=== PATIENT | female | born 1985 | race Two or more races ===

== ENCOUNTER 2020-07-15 | Emergency (ER) | payer OTHER ==
[~2020-07-15] VITALS: Ht 160 cm; Wt 103.6 kg
[2020-07-15] MEDS ORDERED: BENZ100C PO (01:10)
[2020-07-15] MEDS ORDERED: GUAI120L35 PO (01:10)
--- NOTE | 2020-07-15 01:11 | ED.ADGEN ---
Past Medical History Past Medical History: GERD, Migraines, Other Additional Past Medical Histor: "BACK PROBLEMS" Past Surgical History: No Surgical History Smoking Status: Former Smoker Alcohol Use: None General Adult EDM: Chief Complaint: CHEST PAIN HPI: HPI: Patient is a 34-year-old previously healthy female who presents to the emergency room complaining of substernal chest pain when she coughs. She states that she has had a cough for "a while" but it seems to have gotten worse over the last week. She states that since last night she has been having coughing fits that lead to vomiting and she feels like it is hard to catch her breath after these coughing fits. When she is not coughing she does not have any shortness of breath. She denies any fever, chills, sweats, URI symptoms, nausea, diarrhea, abdominal pain. Review of Systems: Review of Systems: Complete ROS is negative unless otherwise documented in HPI Allergies: Allergies: Allergies Coded Allergies Type Severity Reaction Last Updated Verified aspirin Allergy Unknown HIVES 07/15/20 Yes Physical Exam: PE: General: Awake, alert, NAD. Well Nourished, well hydrated. Cooperative HEENT: Atraumatic, EOMI, PERRL, airway patent, moist oral mucosa Neck: Supple, trachea midline Respiratory: CTA bilaterally, normal effort, no wheezing/crackles CV: RRR, no murmur, cap refill <2 GI: Soft, nondistended, nontender, no masses MSK: No obvious deformities Skin: Warm, dry, intact Neuro: A&O x3, speech NL, sensory and motor grossly intact, no focal deficits Psych: Normal affect, normal mood, not suicidal or homicidal Current Patient Data: Labs: Laboratory Tests Test 07/15/20 00:43 POC Urine HCG, Qualitative Hcg negative (Negative) Vital Signs: Vital Signs Date Time Temp Pulse Resp B/P (MAP) Pulse Ox O2 Delivery O2 Flow Rate FiO2 07/15/20 00:08 97.9 94 20 104/63 (77) 96 Room Air 97.9 EKG: EKG: [] Heart Score: Risk Factors: Risk Factors: DM, Current or recent (<one month) smoker, HTN, HLP, family history of CAD, obesity. Risk Scores: Score 0 - 3: 2.5% MACE over next 6 weeks - Discharge Home Score 4 - 6: 20.3% MACE over next 6 weeks - Admit for Clinical Observation Score 7 - 10: 72.7% MACE over next 6 weeks - Early Invasive Strategies Radiology/Procedures: Radiology/Procedures: [] Course & Med Decision Making: Course & Med Decision Making Pertinent Labs and Imaging studies reviewed. (See chart for details) Patient is a 34-year-old female who presents to the emergency room with chest pain when coughing. Pain is reproducible on exam. Patient likely has costochondritis. Chest x-ray is normal. Vitals are normal. Patient is overall well-appearing. EKG is normal. At this time pain is most consistent with musculoskeletal and patient does not need a cardiac work-up at this time. Patient's test results and vitals while in the ED were fully reviewed and discussed with the patient. Patient is stable and at this time does not need admission to the hospital. We have discussed strict return precautions and the importance of following up with their Primary Care Physician. Patient stated understanding and was given an opportunity to ask any questions. Patient is in agreement with plan. Karen Disclaimer: Karen Disclaimer: This electronic medical record was generated, in whole or in part, using a voice recognition dictation system. Departure Departure Impression: Primary Impression: Costal chondritis Additional Impression: Cough Disposition: 01 DC HOME SELF CARE/HOMELESS Condition: STABLE Patient Instructions: Costochondritis, Cough, Adult Scripts Guaifenesin/Codeine Phosphate (Codeine-Guaifen 10-100 mg/5 ml) 120 Ml Liquid 5 ML PO PRN Q6HRS PRN for cough and congestion MDD 20 Milliliter(s) for 6 Days, #60 ML 0 Refills Prov: RICKEY TRUJILLO MD 07/15/20 Benzonatate (TESSALON PERLE) 100 Mg Capsule 1 CAP PO TID for cough, #21 CAP Prov: RICKEY TRUJILLO MD 07/15/20 Problem Qualifiers RICKEY TRUJILLO MD Jul 15, 2020 01:11
[2020-07-15 01:29] VITALS: BP 127/58
--- NOTE | 2020-07-15 02:17 | RAD ---
AP portable chest radiograph 07/15/2020 Clinical History: Shortness of breath. An AP erect portable digital radiograph of the chest was obtained. The cardiac and mediastinal silhouettes are within normal limits in size and configuration. No pulmon karel infiltrate is seen. No pleural effusion or pneumothorax is noted. The osseous structures are nas sly intact. IMPRESSION: No acute abnormality is seen. Electronically signed by: Edmar Mejia MD (07/15/2020 2:15 AM) [id number]
--- NOTE | 2020-07-15 03:05 | EKG ---
[facility] [address] [place] [address] Test Date: 2020-07-15 Test Time: 00:10:30 Pat Name: ALEXANDREA DAN Department: Room: Gender: F [employer]: : 1985 Requested By: RICKEY TRUJILLO Order Number: [id number] Reading MD: Measurements Intervals [place] Rate: 96 P: 48 MS: 152 QRS: 86 QRSD: 76 T: 27 QT: 336 QTc: 431 Interpretive Statements SINUS RHYTHM OTHERWISE NORMAL ECG RI6.02 No previous ECG available for comparison
== END 2020-07-15 01:40 | disposition home or self-care (01) ==
LOC: ER
DX: M94.0 Chondrocostal junction syndrome [Tietze] (principal); K21.9 Gastro-esophageal reflux disease without esophagitis; G43.909 Migraine, unspecified, not intractable, without status migrainosus; Z87.891 Personal history of nicotine dependence; Z88.6 Allergy status to analgesic agent
CPT/HCPCS: 71045; 81025; 93005; 99283